=== PATIENT | female | born 1945 | race Two or more races ===

== ENCOUNTER → 2016-07-02 | Outpatient (CLI) | payer OTHER, MEDICAID | LOC: FIMAGING 09:24 | PROVIDERS: ATTEND Family Medicine | DX: Z12.31 Encounter for screening mammogram for malignant neoplasm of breast (principal) | CPT/HCPCS: G0202 ==

== ENCOUNTER 2016-09-11 09:24 | Emergency (ER) | payer OTHER, MEDICAID ==
[2016-09-11 10:01] LABS: COLOR PALE YELLOW; LEUKOCYTE ESTERASE,URINE NEGATIVE (NEGATIVE); NITRITE,URINE NEGATIVE (NEGATIVE)
[2016-09-11 10:02] LABS: WBC,URINE NONE SEEN /hpf (0-3)
[2016-09-11] MEDS ORDERED: LORazepam 2 MG/ML INJ IVP ONE (10:03)
[2016-09-11] MEDS ORDERED: NS 1,000 ML IV ONE (10:03)
--- NOTE | 2016-09-11 10:05 | EDPHY ---
H & P Stated Complaint: increasing muscle aches and pains/uses oxycodone HPI/ROS: CHIEF COMPLAINT: Muscle spasms, twitching HISTORY OF PRESENT ILLNESS: Patient complains of 1 week history of muscle spasms and twitching. This was gradual onset. First started in the abdomen and was Mild 1st and worsened throughout the week. She called her physician mid week and they informed her that it was likely nothing that she should follow up with them next week. It has worsened over the past 24-48 hours to the point that she cannot tolerate it. She has some discomfort with this minimally elevated from her baseline chronic pain. No chest pain. No shortness of breath. No unilateral complaints. No difficulty with speech. is with her and does not describe any facial droop, slurred speech or difficulty with her thought process or appearance. No modifying factors for this. She does feel that she might be somewhat anxious with it. She also feels that she has been urinating more frequently but does not have any dysuria or flank pain. No fever or chills. No other associated complaints or modifying factors REVIEW OF SYSTEMS: Ten systems reviewed and are negative unless otherwise noted in the HPI PERTINENT MEDICAL HISTORY: Chronic pain SOCIAL HISTORY: Nonsmoker, nondiabetic, lives at home with her EXAMINATION General Appearance: Alert, no distress, twitching in multiple locations Head: normocephalic, atraumatic Eyes: Pupils equal and round, no conjunctival pallor or injection ENT, Mouth: Mucous membranes moist. Uvula midline Neck: Normal inspection, supple, non-tender Respiratory: Lungs are clear to auscultation. No wheezing, rhonchi or crackles. Cardiovascular: Regular rate and rhythm. No murmur. Gastrointestinal: Abdomen is soft and nontender Neurological: GCS 15. Cranial nerves 2-12 grossly intact. Fasciculations/ twitching in all 4 limbs A&O, nonfocal, normal gait. No pronator drift. No dysmetria. Symmetric patellar reflexes. Skin: Warm and dry, no rash. No lacerations abrasions or contusions Extremities: Nontender, no pedal edema Psychiatric: Mood and affect normal DIFFERENTIAL DIAGNOSES: Including but not limited to muscle spasms, anxiety, fasciculations, dehydration , electrolyte disturbance, seizure, rhabdomyolysis MDM: 10:04 a.m. Muscle spasms twitching some. He has no unilateral complaints or findings. No stroke-like history or examination findings. I have ordered laboratory studies , IV fluid and Ativan. She is in acute distress 11:25 a.m. I have re-evaluated the patient. She is resting comfortably. She says that her symptoms have significantly improved. She has some mild spasms of her abdomen that she describes but I do not appreciate them on examination. Labs are all within normal limits. We discussed discharge home with prescription of Ativan for the next 2 days and for to contact her primary care physician for further care. She is also requesting refill of Lunesta as she dropped several of these down the drain this morning. I am comfortable with prescribing a short course of these for her to follow up with primary care physician for further prescription. She is discharged home stable condition SUPERVISION: This patient was independently evaluated without direct examination by the attending physician. Case was discussed with attending physician. Case discussed with Dr. Hodge Source: Patient, Family Exam Limitations: No limitations - Personal History Current Tetanus/Diphtheria Vaccine: Yes - Medical/Surgical History Hx Asthma: No Hx Chronic Respiratory Disease: No Hx Diabetes: No Hx Cardiac Disease: No Hx Renal Disease: No Hx Cirrhosis: No Hx Alcoholism: No Hx HIV/AIDS: No Hx Splenectomy or Spleen Trauma: No Other PMH: chronic back pain, HTN, arthritis, knee injections. cornea transplant , GI bypass, gallblader, hyster, c-setions. - Social History Smoking Status: Never smoked Constitutional: Initial Vital Signs Temperature (C) 97.9 F 09/11/16 09:30 Heart Rate 94 09/11/16 09:30 Respiratory Rate 18 09/11/16 09:30 Blood Pressure 123/84 H 09/11/16 09:30 O2 Sat (%) 95 09/11/16 09:30 O2 Delivery Mode Room Air Allergies/Adverse Reactions: latex Allergy (Intermediate, Verified 09/11/16 09:28) Rash Penicillins Allergy (Intermediate, Verified 09/11/16 09:28) Rash Home Medications: Medication Instructions Recorded Cyanocobalamin [Vitamin B12 1,000 mcg IM Q30D@12/03/11 1000MCG/ML (*)] Desonide 0.05% [Desonide 0.05% 1 kuldeep TP DAILY PRN 12/03/11 Cream (*)] Dorzolamide/Timolol [Cosopt (RX)] 1 drops RTEYE BID 12/03/11 Fluocinonide 0.05% [Lidex 0.05% 1 kuldeep TP DAILY PRN 12/03/11 Cream (RX)] Zolpidem Tartrate [Ambien 10 mg] 10 mg PO HS 12/03/11 Acetaminophen [Tylenol ES 500 mg 1,000 mg PO BID PRN 05/16/14 (*)] Bimatoprost 0.01% [Lumigan 0.01% 1 drops RTEYE HS 05/16/14 (*)] Sodium Chloride 2% [Suman-128 2% 1 drops RTEYE QID PRN 05/16/14 (RX)] Triamcinolone 0.1% [Triamcinolone 1 kuldeep TP DAILY PRN 05/16/14 0.1% Cream (RX)] prednisoLONE ACET 1% [Pred Forte 1 drops RTEYE BID 05/16/14 1% (RX)] oxyCODONE CR 02/26/16 Eszopiclone [Lunesta] 3 mg PO HS #8 tablet 09/11/16 LORazepam [Ativan] 1 mg PO Q8 PRN #9 tablet 09/11/16 Medical Decision Making - Data Points Laboratory Results: Laboratory Results 09/11/16 10:17 09/11/16 10:17 09/11/16 09/11/16 09/11/16 10:17 10:17 09:50 WBC 4.92 10^3/uL 10^3/uL (3.80-9.50) RBC 4.98 10^6/uL 10^6/uL (4.18-5.33) Hgb 13.6 g/dL g/dL (12.6-16.3) Hct 41.6 % % (38.0-47.0) MCV 83.5 fL fL (81.5-99.8) MCH 27.3 pg L pg (27.9-34.1) MCHC 32.7 g/dL g/dL (32.4-36.7) RDW 14.6 % % (11.5-15.2) Plt Count 318 10^3/uL 10^3/uL (150-400) MPV 9.0 fL fL (8.7-11.7) Neut % (Auto) 54.1 % % (39.3-74.2) Lymph % (Auto) 34.8 % % (15.0-45.0) [place] % (Auto) 9.3 % % (4.5-13.0) Eos % (Auto) 1.4 % % (0.6-7.6) Baso % (Auto) 0.2 % L % (0.3-1.7) Nucleat RBC Rel Count 0.0 % % (0.0-0.2) Absolute Neuts (auto) 2.66 10^3/uL 10^3/uL (1.70-6.50) Absolute Lymphs (auto) 1.71 10^3/uL 10^3/uL (1.00-3.00) Absolute Monos (auto) 0.46 10^3/uL 10^3/uL (0.30-0.80) Absolute Eos (auto) 0.07 10^3/uL 10^3/uL (0.03-0.40) Absolute Basos (auto) 0.01 10^3/uL L 10^3/uL (0.02-0.10) Absolute Nucleated RBC 0.00 10^3/uL 10^3/uL (0-0.01) Immature Gran % 0.2 % % (0.0-1.1) Immature Gran # 0.01 10^3/uL 10^3/uL (0.00-0.10) Sodium 139 mEq/L mEq/L (134-144) Potassium 4.1 mEq/L mEq/L (3.5-5.2) Chloride 103 mEq/L mEq/L (97-110) Carbon Dioxide 25 mEq/l mEq/l (22-31) Anion Gap 11 mEq/L mEq/L (8-16) BUN 18 mg/dL mg/dL (7-23) Creatinine 0.8 mg/dL mg/dL (0.6-1.0) Estimated GFR > 60 Glucose 98 mg/dL mg/dL (70-100) Calcium 9.8 mg/dL mg/dL (8.5-10.4) Magnesium 2.0 mg/dL mg/dL (1.6-2.3) Creatine Kinase 30 IU/L IU/L (0-156) Urine Color PALE YELLOW Urine Appearance CLEAR Urine pH 7.0 (5.0-7.5) Ur Specific [place] 1.004 (1.002-1.030) Urine Protein NEGATIVE (NEGATIVE) Urine Ketones NEGATIVE (NEGATIVE) Urine Blood NEGATIVE (NEGATIVE) Urine Nitrate NEGATIVE (NEGATIVE) Urine Bilirubin NEGATIVE (NEGATIVE) Urine Urobilinogen NEGATIVE EU EU (0.2-1.0) Ur Leukocyte Esterase NEGATIVE (NEGATIVE) Urine RBC 1-3 /hpf /hpf (0-3) Urine WBC NONE SEEN /hpf /hpf (0-3) Ur Epithelial Cells TRACE /lpf /lpf (NONE-1+) Urine Glucose NEGATIVE (NEGATIVE) Medications Given: Discontinued Medications Sodium Chloride (Ns) 1,000 mls @ 0 mls/hr IV ONCE ONE; Wide Open PRN Reason: Protocol Stop: 09/11/16 10:04 Last Admin: 09/11/16 10:28 Dose: 1,000 mls Lorazepam (Ativan Injection) 1 mg IVP EDNOW ONE Stop: 09/11/16 10:04 Last Admin: 09/11/16 10:28 Dose: 1 mg Departure - Departure Disposition: Home, Routine, Self-Care Clinical Impression: Muscle spasm, Anxiety, Sleep disorder Condition: Good Instructions: Muscle Spasm (ED), Anxiety (ED), Insomnia (ED) Additional Instructions: Continue medications as previously prescribed. Add Ativan as needed as prescribed. Follow up with primary care physician on Tuesday. Return here for return of symptoms, worsening symptoms, unilateral complaints, slurred speech, headache, dizziness Referrals: Monse Jolley MD [Primary Care Provider] - As per Instructions Prescriptions: Eszopiclone [Lunesta] 3 mg PO HS #8 tablet LORazepam [Ativan] 1 mg PO Q8 PRN #9 tablet PRN Reason: Spasms
[2016-09-11 10:30] LABS: % IMMATURE GRANULYOCYTES 0.2 % (0.0-1.1); ABSOLUTE IMMATURE GRANULOCYTES 0.01 10^3/uL (0.00-0.10); ADD DIFF? NO; ADD MORPH? NO; ADD SCAN? NO; ATYPICAL LYMPHOCYTE FLAG 0 (0-99); FRAGMENT RBC FLAG 0 (0-99); HEMATOCRIT 41.6 % (38.0-47.0); HEMOGLOBIN 13.6 g/dL (12.6-16.3); LEFT SHIFT FLG 0 (0-99); LIPEMIA HEMOLYSIS FLAG 80 (0-99); MEAN CELL HEMOGLOBIN 27.3 pg (27.9-34.1); MEAN CELL HEMOGLOBIN CONCENTR. 32.7 g/dL (32.4-36.7); MEAN CELL VOLUME 83.5 fL (81.5-99.8); PLATELET CLUMPS FLAG 0 (0-99); PLATELET COUNT 318 10^3/uL (150-400); RED BLOOD CELL COUNT 4.98 10^6/uL (4.18-5.33); RED CELL DISTRIBUTION WIDTH 14.6 % (11.5-15.2)
[2016-09-11 10:55] LABS: CALCIUM 9.8 mg/dL (8.5-10.4); CARBON DIOXIDE 25 mEq/l (22-31); CHLORIDE 103 mEq/L (97-110); CREATININE 0.8 mg/dL (0.6-1.0); GLOMERULAR FILTRATION RATE > 60; GLUCOSE 98 mg/dL (70-100); SODIUM 139 mEq/L (134-144)
[2016-09-11 11:04] LABS: ANION GAP 11 mEq/L (8-16); POTASSIUM 4.1 mEq/L (3.5-5.2)
[2016-09-11 11:42] VITALS: BP 128/96; PULSE 66; RESP 14; TEMP 97.7; O2SAT 97
== END 2016-09-11 11:42 | disposition home or self-care (01) ==
DX: M62.838 Other muscle spasm (principal); G47.9 Sleep disorder, unspecified; I10 Essential (primary) hypertension; F41.9 Anxiety disorder, unspecified; Z91.040 Latex allergy status
CPT/HCPCS: 96361; 96374; 99284; J2060

== ENCOUNTER 2016-09-18 15:08 | Emergency (ER) | payer OTHER, MEDICAID ==
[2016-09-18 15:16] VITALS: O2SAT 95
[2016-09-18] MEDS ORDERED: LORazepam 1 MG TAB PO ONE (15:46)
[2016-09-18] MEDS ORDERED: oxyCODONE CR 15 MG TAB PO ONE (15:47)
--- NOTE | 2016-09-18 15:56 | EDPHY ---
H & P Stated Complaint: generalized "spasms" x 1 week seen here same recently Time Seen by Provider: 09/18/16 15:27 HPI/ROS: CHIEF COMPLAINT: Muscle spasm HISTORY OF PRESENT ILLNESS: This is a 71-year-old female presenting to the emergency department ambulatory with cane assist to exam room. Patient reports having some onset of muscle spasms around 10 o'clock this morning have intermittently been continuing throughout the stay. Patient was seen here on for same symptoms, she does report symptoms are not as bad as they were that day, she forgot her appointment with her primary care this week, and is out of Ativan that was prescribed to her on 09/11. She was afraid if she went without the anxiety medication the muscle spasms would increasingly worsen. REVIEW OF SYSTEMS: Constitutional: No fever, no chills. Eyes: No discharge. 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 Cardiovascular: No chest pain, no palpitations. Respiratory: No cough, no shortness of breath. Gastrointestinal: No abdominal pain, no vomiting. Genitourinary: No hematuria. Musculoskeletal: Chronic lower back pain due to multiple lumbar fusion. Muscle spasms Skin: No rashes. Neurological: No headache. Source: Patient, Old records - Personal History Current Tetanus/Diphtheria Vaccine: Unsure Current Tetanus Diphtheria and Acellular Pertussis (TDAP): Unsure - Medical/Surgical History Hx Asthma: No Hx Chronic Respiratory Disease: No Hx Diabetes: No Hx Cardiac Disease: No Hx Renal Disease: No Hx Cirrhosis: No Hx Alcoholism: No Hx HIV/AIDS: No Hx Splenectomy or Spleen Trauma: No Other PMH: chronic back pain, HTN, arthritis, knee injections. cornea transplant , GI bypass, gallblader, hyster, c-setions. - Social History Smoking Status: Never smoked - Physical Exam Exam: General Appearance: Alert, no distress. Obese HEENT: Pupils and round no pallor or injection. Mucous membranes moist. Respiratory: There are no retractions, lungs are clear to auscultation. Cardiovascular: Regular rate and rhythm. Gastrointestinal: Abdomen is soft and nontender, no masses, bowel sounds normal. Neurological: No focal deficits GCS 15. Cranial nerves 2-12 grossly intact. 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 Musculoskeletal: Neck is supple nontender. Extremities: symmetrical, full range of motion. Psychiatric: Patient is oriented X 3, there is no agitation. Constitutional: Initial Vital Signs Temperature (C) 36.3 C 09/18/16 15:13 Heart Rate 111 H 09/18/16 15:13 Respiratory Rate 18 09/18/16 15:13 Blood Pressure 182/78 H 09/18/16 15:13 O2 Sat (%) 95 09/18/16 15:13 O2 Delivery Mode Room Air Allergies/Adverse Reactions: latex Allergy (Intermediate, Verified 09/11/16 09:28) Rash Penicillins Allergy (Intermediate, Verified 09/11/16 09:28) Rash Home Medications: Medication Instructions Recorded Cyanocobalamin [Vitamin B12 1,000 mcg IM Q30D@12/03/11 1000MCG/ML (*)] Desonide 0.05% [Desonide 0.05% 1 kuldeep TP DAILY PRN 12/03/11 Cream (*)] Dorzolamide/Timolol [Cosopt (RX)] 1 drops RTEYE BID 12/03/11 Fluocinonide 0.05% [Lidex 0.05% 1 kuldeep TP DAILY PRN 12/03/11 Cream (RX)] Zolpidem Tartrate [Ambien 10 mg] 10 mg PO HS 12/03/11 Acetaminophen [Tylenol ES 500 mg 1,000 mg PO BID PRN 05/16/14 (*)] Bimatoprost 0.01% [Lumigan 0.01% 1 drops RTEYE HS 05/16/14 (*)] Sodium Chloride 2% [Suman-128 2% 1 drops RTEYE QID PRN 05/16/14 (RX)] Triamcinolone 0.1% [Triamcinolone 1 kuldeep TP DAILY PRN 05/16/14 0.1% Cream (RX)] prednisoLONE ACET 1% [Pred Forte 1 drops RTEYE BID 05/16/14 1% (RX)] oxyCODONE CR 02/26/16 Eszopiclone [Lunesta] 3 mg PO HS #8 tablet 09/11/16 LORazepam [Ativan] 1 mg PO Q8 PRN #9 tablet 09/11/16 LORazepam [Ativan (*)] 1 mg PO Q8 PRN #10 tab 09/18/16 Medical Decision Making ED Course/Re-evaluation: Discussed ED plan of care: Reviewed provider notes and labs from 09/11, no labs or imaging will be done today patient agree with this plan. And Ativan 1 mg p.o. given patient's states she was also due for her oxycodone which she takes 5 times a day. Discussed with patient the importance of following up with her primary care provider for outpatient evaluation. 1645: Patient evaluation---> patient states feeling better, does not feel jittery. Discussed discharge instructions the patient, discharge home---> stable Differential Diagnosis: Other differential diagnosis considered but not limited to neuropathy, fasciculations, anxiety, and some - Data Points Medications Given: Discontinued Medications Lorazepam (Ativan) 1 mg PO ONCE ONE Stop: 09/18/16 15:47 Last Admin: 09/18/16 16:00 Dose: 1 mg Oxycodone HCl (Oxycontin) 15 mg PO EDNOW ONE Stop: 09/18/16 15:48 Last Admin: 09/18/16 16:09 Dose: 15 mg Departure - Departure Disposition: Home, Routine, Self-Care Clinical Impression: Muscle spasm, Anxiety Condition: Good Instructions: Muscle Spasm (ED), Anxiety (ED) Additional Instructions: 1. Follow up with your primary care provider next week for further evaluation without fail call the office Tuesday 2. Take Ativan as needed for the anxiety and muscle spasms 3. Take your pain medications at home, and the medication you have at home for insomnia Referrals: Monse Jolley MD [Primary Care Provider] - As per Instructions Prescriptions: LORazepam [Ativan (*)] 1 mg PO Q8 PRN #10 tab PRN Reason: Anxiety
[2016-09-18 16:11] VITALS: RESP 16
[2016-09-18 17:04] VITALS: BP 172/72; PULSE 106; TEMP 97.5
== END 2016-09-18 17:04 | disposition home or self-care (01) ==
DX: M62.838 Other muscle spasm (principal); F41.9 Anxiety disorder, unspecified; I10 Essential (primary) hypertension; Z91.040 Latex allergy status

== ENCOUNTER 2016-10-24 16:30 | Emergency (ER) | payer OTHER, MEDICAID ==
[2016-10-24 16:37] VITALS: BP 146/81; TEMP 97.2
[2016-10-24] MEDS ORDERED: LORazepam 1 MG TAB PO ONE (17:49)
--- NOTE | 2016-10-24 17:50 | EDPHY ---
H & P Time Seen by Provider: 10/24/16 17:23 HPI/ROS: CHIEF COMPLAINT: Spasms and twitching HISTORY OF PRESENT ILLNESS: The patient was seen in our emergency department on September 18 and September 11 for similar symptoms. Both times the patient was treated with Ativan and felt better. Both times she had similar symptoms to today. After 2nd visit on the she took oral Ativan and her symptoms got better. Her primary care doctor gave her prescription for 6 more and she did intermittently use this when she had symptoms over the last month and each time it helped a lot. Today in the morning she felt like she was "twitching all over ," and that she felt like "somebody was kicking inside me" not just in her abdomen but up into her shoulders and her legs and down into her feet and up inside her shoulders and head. Patient says she felt like things were very twitchy and made her feel anxious. She called her primary care physician's office who asked her to come to the ER for evaluation. REVIEW OF SYSTEMS: Eye: no change in vision ENT: no sore throat Cardiac: no chest pain or syncope Pulmonary: no cough or SOB Abdomen: no vomiting, diarrhea, abdominal pain, ate and drank today normally without any change in symptoms. Musculoskeletal: Chronic back pain unchanged Skin: no rash Neuro: no headache Constitutional: no fever : no urinary symptoms A comprehensive 10 point review of systems is otherwise negative aside from elements mentioned in the history of present illness. PAST MEDICAL HISTORY: Includes chronic back pain, hypertension, arthritis, cornea transplant, gastric bypass, cholecystectomy and hysterectomy, . Social history: Nonsmoker General Appearance: Alert and conversant, cooperative. Eyes: No scleral icterus. ENT, Mouth: Normal mucous membranes. Respiratory: Normal respiratory effort, breath sounds equal, lungs are clear to auscultation. Cardiovascular: Regular rate and rhythm. Gastrointestinal: Abdomen is obese, soft and non tender. No rebound or guarding. Neurological: Alert and oriented x3. Normally conversant. Face symmetric, normal movement and sensation in all extremities. Not acutely tremulous. No clonus. Skin: Warm and dry, no rashes. Musculoskeletal: No peripheral edema and no joint swelling. Psychiatric: Not agitated. Emergency Department course/MDM: Patient presents with twitching and probable muscle spasms with associated anxiety component. Although the initial complaint was that it was in her abdomen it really appears to be much more diffuse. I do not think she has serotonin syndrome or rhabdomyolysis or other acute medical emergent condition. And on through she requires abdominal imaging. Oral Ativan 1 mg and prescription and mandatory primary care follow-up. Smoking Status: Never smoked Constitutional: Initial Vital Signs Temperature (C) 36.2 C 10/24/16 16:33 Heart Rate 82 10/24/16 16:33 Respiratory Rate 18 10/24/16 16:33 Blood Pressure 146/81 H 10/24/16 16:33 O2 Sat (%) 98 10/24/16 16:33 O2 Delivery Mode Room Air Allergies/Adverse Reactions: latex Allergy (Intermediate, Verified 09/11/16 09:28) Rash Penicillins Allergy (Intermediate, Verified 09/11/16 09:28) Rash Home Medications: Medication Instructions Recorded Cyanocobalamin [Vitamin B12 1,000 mcg IM Q30D@09 12/03/11 1000MCG/ML (*)] Desonide 0.05% [Desonide 0.05% 1 kuldeep TP DAILY PRN 12/03/11 Cream (*)] Dorzolamide/Timolol [Cosopt (RX)] 1 drops RTEYE BID 12/03/11 Fluocinonide 0.05% [Lidex 0.05% 1 kuldeep TP DAILY PRN 12/03/11 Cream (RX)] Zolpidem Tartrate [Ambien 10 mg] 10 mg PO HS 12/03/11 Acetaminophen [Tylenol ES 500 mg 1,000 mg PO BID PRN 05/16/14 (*)] Bimatoprost 0.01% [Lumigan 0.01% 1 drops RTEYE HS 05/16/14 (*)] Sodium Chloride 2% [Suman-128 2% 1 drops RTEYE QID PRN 05/16/14 (RX)] Triamcinolone 0.1% [Triamcinolone 1 kuldeep TP DAILY PRN 05/16/14 0.1% Cream (RX)] prednisoLONE ACET 1% [Pred Forte 1 drops RTEYE BID 05/16/14 1% (RX)] oxyCODONE CR 02/26/16 Eszopiclone [Lunesta] 3 mg PO HS #8 tablet 09/11/16 LORazepam [Ativan] 1 mg PO Q8 PRN #9 tablet 09/11/16 LORazepam [Ativan (*)] 1 mg PO Q8 PRN #10 tab 09/18/16 LORazepam [Lorazepam] 1 mg PO Q12 PRN #7 tablet 10/24/16 Medical Decision Making - Data Points Medications Given: Discontinued Medications Lorazepam (Ativan) 1 mg PO EDNOW ONE Stop: 10/24/16 17:50 Last Admin: 10/24/16 18:01 Dose: 1 mg Departure - Departure Disposition: Home, Routine, Self-Care Clinical Impression: Muscle spasm, Anxiety Condition: Good Instructions: Lorazepam (By mouth) Referrals: Monse Jolley MD [Primary Care Provider] - As per Instructions Prescriptions: LORazepam [Lorazepam] 1 mg PO Q12 PRN #7 tablet PRN Reason: spasms/anxiety
[2016-10-24 18:02] VITALS: PULSE 77; RESP 16; O2SAT 95
== END 2016-10-24 18:02 | disposition home or self-care (01) ==
DX: F41.9 Anxiety disorder, unspecified (principal); M62.838 Other muscle spasm; I10 Essential (primary) hypertension; Z91.040 Latex allergy status

== ENCOUNTER 2016-10-24 23:23 | Emergency (ER) | payer OTHER, MEDICAID ==
[2016-10-24 23:32] VITALS: RESP 16
[2016-10-24] MEDS ORDERED: DIAZEPAM 5 MG TAB PO ONE (23:53)
--- NOTE | 2016-10-25 00:01 | EDPHY ---
H & P Stated Complaint: stomach spasm Time Seen by Provider: 10/24/16 23:43 HPI/ROS: CHIEF COMPLAINT: Spasms HISTORY OF PRESENT ILLNESS: This is a 71-year-old female presenting to the emergency department complaining of abdominal spasms, patient has been seen multiple occasions for the same problem and was seen earlier today for same problem was given Ativan patient states this did help. Patient states she went to bed was fine woke up about 2200 with new abdominal spasms took 1 of her oxycodone but continued to have abdominal spasm no changes . As previously patient states she could not feel her prescription of Ativan because the pharmacies were already closed and was not given anything to take home with her. Denies any chest pain shortness of breath headache. Patient was seen by her primary care provider on 10/12/2016 for same problem and is going through a workup for a cause. REVIEW OF SYSTEMS: Constitutional: No fever, no chills. Eyes: No discharge. No blurred vision ENT: No sore throat. Cardiovascular: No chest pain, no palpitations. Respiratory: No cough, no shortness of breath. Gastrointestinal: No abdominal pain, no vomiting. No diarrhea no nausea. Abdominal spasms Genitourinary: No hematuria. Musculoskeletal: Chronic back pain history of herniated disc sciatica Skin: No rashes. Neurological: No headache. Source: Patient, Old records - Personal History Current Tetanus/Diphtheria Vaccine: Unsure Current Tetanus Diphtheria and Acellular Pertussis (TDAP): Unsure - Medical/Surgical History Hx Asthma: No Hx Chronic Respiratory Disease: No Hx Diabetes: No Hx Cardiac Disease: No Hx Renal Disease: No Hx Cirrhosis: No Hx Alcoholism: No Hx HIV/AIDS: No Hx Splenectomy or Spleen Trauma: No Other PMH: chronic back pain, HTN, arthritis, knee injections. cornea transplant , GI bypass, gallblader, hyster, c-setions. - Social History Smoking Status: Never smoked - Physical Exam Exam: General Appearance: Alert, no distress. Non ill-appearing nontoxic Eyes: Pupils equal and round no pallor or injection. ENT, Mouth: Mucous membranes moist. Respiratory: There are no retractions, lungs are clear to auscultation. Cardiovascular: Regular rate and rhythm. Gastrointestinal: Abdomen is soft and nontender, no fasciculations noted no masses, bowel sounds normal. Neurological: No focal deficits. Answering questions appropriately Skin: Warm and dry, no rashes. Musculoskeletal: Neck is supple nontender. Extremities: symmetrical, full range of motion. Psychiatric: Patient is oriented X 3, there is no agitation. Acting appropriately Constitutional: Initial Vital Signs Temperature (C) 36.5 C 10/24/16 23:29 Heart Rate 98 10/24/16 23:29 Respiratory Rate 16 10/24/16 23:29 Blood Pressure 149/74 H 10/24/16 23:29 O2 Sat (%) 95 10/24/16 23:29 O2 Delivery Mode Room Air Allergies/Adverse Reactions: latex Allergy (Intermediate, Verified 10/24/16 23:27) Rash Penicillins Allergy (Intermediate, Verified 10/24/16 23:27) Rash Home Medications: Medication Instructions Recorded Cyanocobalamin [Vitamin B12 1,000 mcg IM Q30D@12/03/11 1000MCG/ML (*)] Desonide 0.05% [Desonide 0.05% 1 kuldeep TP DAILY PRN 12/03/11 Cream (*)] Dorzolamide/Timolol [Cosopt (RX)] 1 drops RTEYE BID 12/03/11 Fluocinonide 0.05% [Lidex 0.05% 1 kuldeep TP DAILY PRN 12/03/11 Cream (RX)] Acetaminophen [Tylenol ES 500 mg 1,000 mg PO BID PRN 05/16/14 (*)] Bimatoprost 0.01% [Lumigan 0.01% 1 drops RTEYE HS 05/16/14 (*)] Sodium Chloride 2% [Suman-128 2% 1 drops RTEYE QID PRN 05/16/14 (RX)] Triamcinolone 0.1% [Triamcinolone 1 kuldeep TP DAILY PRN 05/16/14 0.1% Cream (RX)] prednisoLONE ACET 1% [Pred Forte 1 drops RTEYE BID 05/16/14 1% (RX)] oxyCODONE CR 02/26/16 Eszopiclone [Lunesta] 3 mg PO HS #8 tablet 09/11/16 LORazepam [Ativan] 1 mg PO Q8 PRN #9 tablet 09/11/16 LORazepam [Ativan (*)] 1 mg PO Q8 PRN #10 tab 09/18/16 [place]ra 10/24/16 LORazepam [Lorazepam] 1 mg PO Q12 PRN #7 tablet 10/24/16 Medical Decision Making ED Course/Re-evaluation: Discussed ED plan of care: Valium 5 mg p.o.. Will re-evaluate patient. I also discussed with patient the importance of getting her medication refilled and she needs to follow up with her primary care next week. Differential Diagnosis: Other differential diagnosis considered but not limited to appendicitis, cholecystitis, and abdominal pain - Data Points Medications Given: Discontinued Medications Diazepam (Valium) 5 mg PO EDNOW ONE Stop: 10/24/16 23:54 Last Admin: 10/24/16 23:57 Dose: 5 mg Departure - Departure Disposition: Home, Routine, Self-Care Clinical Impression: Muscle spasm, Anxiety Condition: Good Instructions: Muscle Spasm (ED), Anxiety (ED) Additional Instructions: 1. Get your prescription filled tomorrow 2. Follow up with your primary care provider this week 3. The there could also be a recommendation for a outpatient MRI of your spine to see if these muscle spasms are related to your chronic lower back pain and herniated disc Referrals: Monse Jolley MD [Primary Care Provider] - As per Instructions
[2016-10-25] MEDS ORDERED: LORAZEPAM 1 MG PREPACK#4 BTL TAKEHOME ONE (00:47)
[2016-10-25 01:11] VITALS: BP 142/72; PULSE 68; TEMP 98.2; O2SAT 94
== END 2016-10-25 01:11 | disposition home or self-care (01) ==
DX: M62.838 Other muscle spasm (principal); F41.9 Anxiety disorder, unspecified; I10 Essential (primary) hypertension; Z91.040 Latex allergy status

== ENCOUNTER → 2017-03-11 | Outpatient (CLI) | payer OTHER, MEDICAID | LOC: FIMAGING 09:10 | PROVIDERS: ATTEND Family Medicine | DX: R22.43 Localized swelling, mass and lump, lower limb, bilateral (principal) ==

== ENCOUNTER 2017-04-28 22:11 | Emergency (ER) | payer OTHER, MEDICAID ==
--- NOTE | 2017-04-28 22:16 | EDPHY ---
H & P HPI/ROS: HPI CHIEF COMPLAINT: "I think I have a urinary tract infection" and additionally "I am out of my opioids and need to refill" HISTORY OF PRESENT ILLNESS: Patient is a 72-year-old female, she has chronic pain and takes chronic opioids, oxycodone 15 mg 5 times a day. She has been out of her opioids for a day. She presents to the emergency room stating that she may have a urinary tract infection with dysuria. Additionally she is requesting that I refill her oxycodone. She has had urinary symptoms for 2 days. She states she takes oxycodone 15 mg 5 times a day for her chronic pain. I explained that I cannot refill her oxycodone 15 mg for 5 times a day that I do recommend she called her primary care doctor early in the morning to have this addressed. Past Medical History: Past medical history for chronic pain, hypertension, chronic abdominal spasms Past Surgical History: Gallbladder removal, Social History: Denies daily use of drugs alcohol tobacco. Family History: Noncontributory ROS REVIEW OF SYSTEMS: A comprehensive 10 point review of systems is otherwise negative aside from elements mentioned in the history of present illness. Exam Constitutional appears well nontoxic, no acute distress, normal vital signs, triage nursing summary reviewed, vital signs reviewed, awake/alert. Eyes normal conjunctivae and sclera, EOMI, PERRLA. HENT normal inspection, atraumatic, moist mucus membranes, no epistaxis, neck supple/ no meningismus, no raccoon eyes. Respiratory clear to auscultation bilaterally, normal breath sounds, no respiratory distress, no wheezing. Cardiovascular rate normal, regular rhythm, no murmur, no edema, distal pulses normal. Gastrointestinal soft, non-tender, no rebound, no guarding, normal bowel sounds, no distension, no pulsatile mass. Genitourinary no CVA tenderness. Musculoskeletal no midline vertebral tenderness, full range of motion, no calf swelling, no tenderness of extremities, no meningismus, good pulses, neurovascularly intact. Skin pink, warm, & dry, no rash, skin atraumatic. Neurologic awake, alert and oriented x 3, AAOx3, moves all 4 extremities equally, motor intact, sensory intact, CN II-XII intact, normal cerebellar, normal vision, normal speech. Psychiatric normal mood/affect. Heme/Lymph/Immune no lymphadenopathy. Differential Diagnosis: Includes but is not limited to in a particular order, UTI, cystitis, pyelonephritis pelvic inflammatory disease, chronic pain, opioid dependency Medical Decision Making: Plan for this patient check UA, if her urinalysis unremarkable will proceed with pelvic exam to make sure she does not have a pelvic infection which includes yeast or BV. Additionally I have explained that I am unable to fill her opioids at 15 mg 5 times a day do recommend she has close follow-up with her primary care doctor about this. Re-evaluation: [id number]: I did update this patient about her urinalysis that it does not show an infection I would recommend that we pursue the pelvic exam to rule out a pelvic infection or yeast infection however the patient has declined pelvic exam in the emergency room. She states she does not want me doing a pelvic exam she reports for female. I explained that there is no female physician or physician library serials assistant here at this time I am more than happy to fill her medication for yeast if she would like this however she has declined this as well. After further discussion with her she has became very upset and angry that I will not refill her opioids. At one point she started yelling screaming at me she started a raised voice and become aggressive. She is very mad that I will not refill her opioid prescription at 15 mg of oxycodone 5 times a day. She then asked to speak with the charge nurse which I have sent Bishop ROBERSONbattery charger nurse into the room at her request. Again I did offer pelvic exam, additionally I have offered her to treat her empirically, however I have declined prescribe her large amount of oxycodone. I do recommend she follows up with primary doctor about her chronic pain and opioid needs. Source: Patient - Medical/Surgical History Hx Asthma: No Hx Chronic Respiratory Disease: No Hx Diabetes: No Hx Cardiac Disease: No Hx Renal Disease: No Hx Cirrhosis: No Hx Alcoholism: No Hx HIV/AIDS: No Hx Splenectomy or Spleen Trauma: No Other PMH: chronic back pain, HTN, arthritis, knee injections. cornea transplant , GI bypass, gallblader, hyster, c-setions. - Social History Smoking Status: Never smoked Constitutional: Initial Vital Signs Temperature (C) 36.5 C 04/28/17 22:12 Heart Rate 87 04/28/17 22:12 Respiratory Rate 18 04/28/17 22:12 Blood Pressure 150/87 H 04/28/17 22:12 O2 Sat (%) 97 04/28/17 22:12 O2 Delivery Mode Room Air Allergies/Adverse Reactions: latex Allergy (Intermediate, Verified 04/28/17 22:17) Rash Penicillins Allergy (Intermediate, Verified 04/28/17 22:17) Rash Home Medications: Medication Instructions Recorded Cyanocobalamin [Vitamin B12 1,000 mcg IM Q30D@12/03/11 1000MCG/ML (*)] Desonide 0.05% [Desonide 0.05% 1 kuldeep TP DAILY PRN 12/03/11 Cream (*)] Dorzolamide/Timolol [Cosopt (RX)] 1 drops RTEYE BID 12/03/11 Fluocinonide 0.05% [Lidex 0.05% 1 kuldeep TP DAILY PRN 12/03/11 Cream (RX)] Acetaminophen [Tylenol ES 500 mg 1,000 mg PO BID PRN 05/16/14 (*)] Bimatoprost 0.01% [Lumigan 0.01% 1 drops RTEYE HS 05/16/14 (*)] Sodium Chloride 2% [Suman-128 2% 1 drops RTEYE QID PRN 05/16/14 (RX)] Triamcinolone 0.1% [Triamcinolone 1 kuldeep TP DAILY PRN 05/16/14 0.1% Cream (RX)] prednisoLONE ACET 1% [Pred Forte 1 drops RTEYE BID 05/16/14 1% (RX)] oxyCODONE CR 02/26/16 Eszopiclone [Lunesta] 3 mg PO HS #8 tablet 09/11/16 LORazepam [Ativan] 1 mg PO Q8 PRN #9 tablet 09/11/16 LORazepam [Ativan (*)] 1 mg PO Q8 PRN #10 tab 09/18/16 Belsomra 10/24/16 LORazepam [Lorazepam] 1 mg PO Q12 PRN #7 tablet 10/24/16 Amitiza 24 mcg (*) 04/28/17 Doxycycline Hyclate 100 mg PO 04/28/17 Medical Decision Making - Data Points Laboratory Results: 04/28/17 22:43 Urine Color PALE YELLOW Urine Appearance CLEAR Urine pH 8.0 H (5.0-7.5) Ur Specific Leroy 1.011 (1.002-1.030) Urine Protein NEGATIVE (NEGATIVE) Urine Ketones NEGATIVE (NEGATIVE) Urine Blood NEGATIVE (NEGATIVE) Urine Nitrate NEGATIVE (NEGATIVE) Urine Bilirubin NEGATIVE (NEGATIVE) Urine Urobilinogen NEGATIVE EU EU (0.2-1.0) Ur Leukocyte Esterase NEGATIVE (NEGATIVE) Urine Glucose NEGATIVE (NEGATIVE) Departure - Departure Disposition: Home, Routine, Self-Care Clinical Impression: Chronic pain Qualifiers: Chronic pain type: other chronic pain Qualified Code(s): G89.29 - Other chronic pain Condition: Good Instructions: Chronic Pain (ED) Additional Instructions: 1. I do recommend you follow up with her primary care doctor about your opioid needs. 2. As always you are more then welcome to return to the emergency room at any time for further care. Referrals: Monse Jolley MD [Primary Care Provider] - As per Instructions
[2017-04-28 22:17] VITALS: BP 150/87; PULSE 87; RESP 18; TEMP 97.7; O2SAT 97
[2017-04-28] MEDS ORDERED: HYDROmorphONE/DILAUDID 1 MG/ML INJ IVP ONE (23:58)
== END 2017-04-29 00:41 | disposition home or self-care (01) ==
DX: G89.29 Other chronic pain (principal); I10 Essential (primary) hypertension; Z91.040 Latex allergy status

== ENCOUNTER → 2017-08-02 | Outpatient (CLI) | payer OTHER, MEDICAID | LOC: FIMAGING 08:35 | PROVIDERS: ATTEND Family Medicine | DX: Z12.31 Encounter for screening mammogram for malignant neoplasm of breast (principal) ==